=== PATIENT | male | born 1945 | race Caucasian/White ===

== ENCOUNTER 2024-01-21 03:58 | Inpatient (IN) ==
--- OUTSIDE RECORDS SUMMARY | 2024-01-21 04:04 | External Medical Summary | Continuity of Care Document ---
Author Name Unknown Organization [facility] [address] [place] [address] [place] [id number] Care Team Providers Care Teacher Emotionally Impaired Name Role Phone Benoit Castillo Primary Care Physician [phone] Encounter [facility] [id number] Date(s): 11/11/23 - 11/11/23 [facility] [address] [facility] [address], [address], [address] [place] [phone] Encounter Diagnosis History of cirrhosis(Discharge Diagnosis) - 11/11/23 Discharge Disposition: Home or Self Care Attending Physician: MD José Miguel, Pacheco Ruelas Referring Physician: MD Castillo Michael John Allergies, Adverse Reactions, Alerts No Known Allergies Assessment and Plan Extracted from: Title:Office Visit Note Author:MD José Miguel, I an R Date:11/11/23 78-year-old white malestat us postright hepatectomyon 01/11/2022 for hepatocellular carcinoma.He follows with us for further management ofcirrhosis.Fortunately, the patient is doing very well from a liver diseaseperspective without any signs of hepatic encephalopathy, esophageal varices, ascites, or lab abnormalities. Labs now to calculate his current Child Reyes and MELD scores. Will arrange repeat colonoscopy now for retreatment of hisradiation proctitis. This will likely require several sessions of APCbased therapy. Repeat EGD in two years to rule out any varices. Repeat CT to survey for HCC recurrence is already scheduled for 2023. In the interim,he was advised regarding the healthy liver lifestyle: A. Absolute avoidance of alcohol. B. Avoidance of NSAIDs and herbal medications as these can induce an idiosyncratic hepatitis. C. Tylenol in doses less than 2 grams per day is the safest drug for the liver to metabolize. D. Should avoid supplemental iron as this can lead to secondary hemosiderosis. E. Should pursue a low fat, low salt cardiac-prudent diet and regular exercise to maintain his ideal body weight. F. Any new medication should be cleared by our offices to insure no hepatotoxicity. Once again, thank you for allowing us to participate in his care. Ifwe could be of further assistance, please feel free to contact José Miguel'judy @ [phone] . Immunizations Given and Recorded Vaccine Date Status Refusal Reason SARS-CoV-2 (COVID-19) mRNA-vacc - [id number] 02/26/23 Recorded hepatitis B adult vaccine 05/23/22 Recorded hepatitis B adult vaccine 04/23/22 Recorded SARS-CoV-2 mRNA (Pfizer 12+) bivalent 02/19/22 Rec orded SARS-CoV-2 mRNA ([id number]) 09/13/21 Re corded SARS-CoV-2 (COVID-19) mRNA BNT-162b2 vax 03/23/21 Recorded SARS-CoV-2 (COVID-19) mRNA BNT-162b2 vax 07/08/20 Recorded SARS-CoV-2 (COVID-19) mRNA BNT-162b2 vax 06/17/20 Recorded pneumococcal 13-valent vaccine 02/20/16 Recorded pneumococcal 13-valent vaccine 03/31/14 Recorded zoster vaccine live 04/09/14 Recorded Medications acetaminophen 500 mg oral tablet Start: 08/20/23 12:35:00 PM EDT, 1 tab, PO, q6h, PRN: as needed for pain Start Date: 08/20/23 Status: Ordered cefpodoxime 200 mg oral tablet Start: 08/23/23 8:54:00 AM EDT, 1 tab, PO, q12h, Disp# 4 tab, start 08/23, Pharmacy: [facility] #[id number] Start Date: 08/23/23 Stop Date: 08/25/23 Status: Ordered Centrum Silver Men's oral tablet Start: 08/20/23 12:35:00 PM EDT, 1 tab, PO, Daily, Note to Pharmacy: Centrum Silver for men 50+ Start Date: 08/20/23 Status: Ordered Citracal Maximum + D Start: 06/05/22 12:10:00 PM EST, 2 tab, PO, bid Start Date: 06/05/22 Status: Ordered Flagyl 500 mg oral tablet Start: 08/23/23 8:53:00 AM EDT, 1 tab, PO, q8h, Disp# 6 tab, Start 08/23, Pharmacy: [id number] Start Date: 08/23/23 Stop Date: 08/25/23 Status: Ordered Flomax 0.4 mg oral capsule Start: 10/11/21 2:16:00 PM EDT, 1 cap, PO, qPM Start Date: 10/11/21 Status: Ordered hydroCHLOROthiazide-triamterene 25 mg-37.5 mg oral capsule Start: 04/09/22 1:47:00 PM EST, 1 cap, PO, Daily Start Date: 04/09/22 Status: Ordered Lasix 40 mg oral tablet Start: 08/23/23 9:01:00 AM EDT, 1 tab, PO, Daily, Disp# 30 tab, NEEDED: For noted daily weight gain 2-3lbs above 205lbs, please take 1 tab (40mg)., PRN: see order comments, Pharmacy: [facility] #[id number] Start Date: 08/23/23 Status: Ordered Metamucil Start: 08/03/22 1:01:00 PM EDT, 5.8 g =, PO, Daily, with at least 8 ounces of water Start Date: 08/03/22 Status: Ordered Senna S Start: 08/23/23 8:52:00 AM EDT, 2 tab, PO, bid, Over the counter Start Date: 08/23/23 Status: Ordered Suprep Bowel Prep Kit oral liquid Start: 11/11/23 10:02:00 AM EDT, See Instructions, Disp# 354 mL, Take as directed., [id number] Start Date: 11/11/23 Status: Ordered Mental Status 11/11/23 Barriers to Learning one year None evide nt Mandatory Health Literacy Documentation Yes Communication Barrier Present No Health Literacy Communication Barriers N ever Primary Language Congolese Problem List Condition Confirmation Course Effective Dates Status Health St atus Informant BPH with elevated PSA Confirmed Active Gall stones Confirmed Active History of prostate cancer Confirmed Active History of radiation therapy Confirmed Active Liver cancer Confirmed Active Prostate cancer Confirmed Active Primary cancer of lumbar vertebral column Confirmed Active Urinary leakage Confirmed Active Diagnosis Diagnosis Type Effective Dates Health Status Cl inical Service Informant History of cirrhosis Discharge Diagnosis 11/11/23 Non-Specified Procedures Procedure Date Related Diagnosis Body Site Status Incisional hernia 1 02/08/23 Compl eted Endoscopy 06/05/22 Completed open R hepatectomy and cholecystectomy 01/11/22 Completed Biopsy liver 2021 Completed Cataract surgery 2010 Complete d History of vasectomy 1981 Comp leted Robotic assisted ventral hernia repair (iPUM +) with Ventralight ST mesh by Dr. Larose Vital Signs Most recent to oldest [Reference Range]: 1 Patient Weight 91.4 kg (11/11/23 9:28 AM) Temperature [36.5-37.9 DegC] 36 DegC *LOW* (11/11/23 9:28 AM) Heart Rate 63 bpm (11/11/23 9:28 AM) Respiratory Rate 14 br/min (11/11/23 9:28 AM) Blood Pressure 144/72mmHg (11/11/23 9:28 AM) Cuff Pulse Pressure 72 mmHg (11/11/23 9:28 AM) BP Location # 1 Right Arm (11/11/23 9:28 AM) Social History Social History Type Response Smoking Status Never smoked cigaret bakari Sex Male Implantable Device List Procedure Provider Procedure Date Device Type Site Unknown Unknown 02/08/23 Unknown Unknown Device Identifier Serial Number Lot or Batch Number Manufacturing Date Expiration Date Distinct Identification Code MRI Safety Implantable Status Assigning Authority Unknown Unknown [id number] Unknown 07/10/24 Unknown Unknown Active Unknown Gastroenterology Outpatient Note * MD José Miguel, Pacheco R: PERFORM Event Display: Gastroenterology Outpt Note Authored Date: [id number] Chief Complaint yearly check up History of Present Illness 78year-old white malestatus postright hepatectomyon 01/11/2022 for hepatocellular carcinoma.He follows in the[facility]atologyclinicafter intraoperativepathology revealedincomplete cirrhosis. He has no history of hepatic encephalopathy. Most recent CT dated September 11, 2023 showed neither ascites nor any focal liver lesions. EGD dated 2022: - Normal upper third of esophagus and middle third of esophagus. - LA Grade A reflux esophagitis with no bleeding. - Normal stomach.- Normal examined duodenum. His past medical history is notable for prostate cancer treated with radiation therapy. Indeed, he was recently treated for radiation proctitis in August 2023. Since that time, he still notes intermittent passage of bright red blood per rectum. Although no past medical history of HTN, HLD, or Diabetes, he does havetworisk factors for steatotic liver disease:overweightand obstructive sleep apnea. He does not consume alcohol. He has no history of tattoos. 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 Review of Systems 1. General: Denies fevers, chills. 2. Head: Denies headaches. 3. Eyes: Denies blurry vision. 4. Ears: Denies tinnitus. 5. Nose/throat: Denies rhinorrhea. 6. Respiratory: Denies shortness of breath. 7. Cardiovascular: Denies chest pain. 8. GI: As above. 9. : Denies hematuria. 10. Psychiatric: Appropriately anxious regarding his condition. Physical Exam Vitals & Measurements T:36C HR:63(Monitored) RR:14 BP:144/72 WT:91.4kg WT:91.400kg(Dosing) Eyes: No icterus Neck: No JVD; No lymphadenopathy Chest: CTA Cor: RRR Abdomen: Benign; no HSM Extr: No c/c/e Neurologic: No asterixis Skin:No jaundice Assessment/Plan 78-year-old white malestatus postright hepatectomyon 01/11/2022 for hepatocellular carcinoma.He follows with us for further management ofcirrhosis.Fortunately, the patient is doing very well from a liver diseaseperspective without any signs of hepatic encephalopathy, esophageal varices,ascites, or lab abnormalities. Labs now to calculate his current Child Reyes and MELD scores. Will arrange repeat colonoscopy now for retreatment of hisradiation proctitis. This will likelyrequire several sessions of APCbased therapy. Repeat EGD in two years to rule out any varices. Repeat CT to survey for HCC recurrence is already scheduled for 2023. In the interim,he was advised regarding the healthy liver lifestyle: A. Absolute avoidance of alcohol. B. Avoidance of NSAIDs and herbal medications as these can induce an idiosyncratic hepatitis. C. Tylenol in doses less than 2 grams per day is the safest drug for the liver to metabolize. D. Should avoid supplemental iron as this can lead to secondary hemosiderosis. E. Should pursue a low fat, low salt cardiac-prudent diet and regular exercise to maintain his ideal body weight. F. Any new medication should be cleared by our offices to insure no hepatotoxicity. Once again, thank you for allowing us to participate in his care. Ifwe could be of further assistance, please feel free to contactDr. Valdez'judy @ [phone]. Problem List/Past Medical History Ongoing BPH with elevated PSA Gall stones History of radiation therapy Primary cancer of lumbar vertebral column Prostate cancer Urinary leakage Procedure/Surgical History Incisional hernia| Service Date: 02/08/2023open R hepatectomy and cholecystectomy| Service Date: 01/11/2022ataract surgery| Service Date: 2010History of vasectomy| Service Date: 1980 Medications acetaminophen(acetaminophen 500 mg oral tablet), 500 mg= 1 tab, PO, q6h, PRN calcium-vitamin D(Citracal Maximum + D), 2 tab, PO, bid cefpodoxime(cefpodoxime 200 mg oral tablet), 200 mg= 1 tab, PO, q12h docusate-senna(Senna S), 2 tab, PO, bid furosemide(Lasix 40 mg oral tablet), 40 mg= 1 tab, PO, Daily, PRN hydroCHLOROthiazide-triamterene(hydroCHLOROthiazide-triamterene 25 mg-37.5 mg oral capsule), 1 cap,PO, Daily metroNIDAZOLE(Flagyl 500 mg oral tablet), 500 mg= 1 tab, PO, q8h multivitamin with minerals(Centrum Silver Men's oral tablet), 1 tab, PO, Daily psyllium(Metamucil), 5.8 g, PO, Daily tamSULOsin(Flomax 0.4 mg oral capsule), 0.4 mg= 1 cap, PO, qPM Allergies NKA No Known Medication Allergies Social History Smoking Status Never smoked cigarettes Family History Cancer: Mother. Stroke: Father. 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 Division of Gastroenterology & Hepatology [facility] [address], [place] [address], [place] [address] IRS Patient Care team information Care Team Personnel Name: Javi Collins Amy E Position: Pharmacist Member Role: Pharmacy - Lifetime Address: Address: [address] Name: MD Jonathan, Benoit Gil Position: Referring DIRECT Member Role: Primary Care Provider Address: Address: [address] [place] [address] Care Team Related Persons Name: LILIA WATTS Address: [place] Address: home [address] [place] [id number] Name: SINTIA WATTS Address: home [address], [place] [id number]"
--- NOTE | 2024-01-21 04:55 | Emergency Department Note ---
Impression & Plan Gross hematuria, Rectal bleed, Thrombocytopenia admit to the [facility] ED Provider Note NAME: DONOVAN WATTS AGE: 78 SEX: Male INFORMANT: Patient ED PROVIDER(S): Vida Figueroa DO CHIEF COMPLAINT: Hematuria and GI bleeding PLAN: Disposition: admit to the [facility] MEDICAL DECISION MAKING: this is an 78-year-old male patient presents to the emergency department with hematuria and GI bleeding. The patient awoke from sleep having to have a bowel movement. He describes having a large bowel movement but at the end noted there was approximately 1 teaspoon of blood from his rectum. He then felt the urge to urinate and states that he passed a moderate amount of blood from his penis with very little urine. He then felt like he had the persistent urge to urinate but was unable to. He presented here with recurrent episodes of gross hematuria. Patient denies having episodes of this previously and does not take any anticoagulation. laboratory studies reveal no leukocytosis. Hemoglobin was 11.5 and hematocrit was 31.8. Platelet count is down to 93. Glucose was 125. Patient was hemodynamically stable. Rectal exam revealed brown stool which was Hemoccult positive. Patient urinated iram blood. Nursing staff placed a three-way Diaz catheter for irrigation. After significant amount of irrigation was performed, the patient continued to pass significant bright red blood. Patient has a history of prostate cancer status post radiation. He had undergone colonoscopy back in August of this year and was scheduled to have a repeat colonoscopy performed on this Saturday. I discussed the case with the [facility] Hospitalist and they will evaluate for further inpatient care and consult with urology. Triage Nursing notes: reviewed and agree With them. Vital Signs: reviewed and unremarkable Chronic Medical/Social Conditions affecting care: history of prostate cancer status post radiation. Patient underwent colonoscopy in August Differential Diagnosis: UTI, hemorrhagic cystitis, anemia, Hemorrhoids, Fistula-patient presents with both GI and bleeding. Diagnostics, independently interpreted by me: ECG: normal sinus rhythm at a rate of 72 with PVCs. There is no ST segment elevation or signs of ischemia. There is no ectopy. Cardiac Monitoring: Normal sinus rhythm at 74 HPI: 78 year old Male arrives for evaluation of Rectal bleeding and gross hematuria. patient awoke from sleep having the urge to have a bowel movement. At the end of that bowel movement, he had a small amount of blood from his rectum. patient then attempted to urinate but passed only bright red blood from his penis. PAST MEDICAL HISTORY: See Below, PAST SURGICAL HISTORY: See Below, SOCIAL HISTORY: See Below, HOME MEDICATIONS: See list ALLERGIES: none VITALS: See Below PHYSICAL EXAMINATION: HEENT: Head - normocephalic and atraumatic. Pupils are equal, round, and reactive to light. Extraocular eye muscles are intact, and sclera are anicteric. Nose - moist nasal mucosa without discharge. Mouth - moist buccal mucosa. Oropharynx is nonerythematous and there is no tonsillar exudate or edema noted. Neck: Supple; no cervical lymphadenopathy appreciated Heart: Regular rate and rhythm. There is a normal S1 and S2 with no murmurs, clicks, or gallops appreciated. Lungs: Clear to auscultation bilaterally with no wheezes, rales, or rhonchi. Abdomen: Soft, completely nontender, nondistended, with good bowel sounds. There are no palpable pulsatile masses or hepatosplenomegaly. There is no guarding, rigidity, or rebound noted. Extremities: No evidence of cyanosis, clubbing, or edema. There are easily palpable peripheral pulses. Skin: [place],warm and dry with good turgor and no rashes. rectal: Brown stool which was Hemoccult test positive emergency department course: The patient was evaluated in room A-11. A complete history and physical was performed. An IV lock was initiated and labs were drawn as above. I did perform a rectal exam with the patient. An order was placed for continuous cardiac monitoring. The patient was in a normal sinus rhythm at a rate of 74. A three-way Diaz catheter was placed by nursing staff and irrigation was started. Initially the urine seemed to clear up somewhat but then it returned to bright red blood. I discussed the case with the [facility] Hospitalist and they will evaluate for further inpatient care. Past Med/Surg History Problem List (Updated 01/21/24 @ 06:48 by Vida Figueroa DO) Thrombocytopenia (Acute) Rectal bleed (Acute) Gross hematuria (Acute) Rectal bleeding Gross hematuria Left hydrocele Urinary frequency Scrotal swelling Heart murmur Dysuria Proctocolitis Radiation proctitis Abnormal serum protein electrophoresis Pancytopenia Contusion of rib on right side Abnormal plasma protein test Carpal tunnel syndrome, bilateral upper limbs Benign essential hypertension Prostate cancer (Chronic 03/21/21) Urinary leakage Primary cancer of lumbar vertebral column Liver cancer History of radiation therapy History of prostate cancer Gall stones BPH with elevated PSA HCC (hepatocellular carcinoma) (01/11/22) Cholelithiases Atypical nevus Hepatic lesion 4.[address] referred to GI 04/2021 Prostate cancer (Chronic 03/21/21) Medical History Hepatic lesion Lower urinary tract symptoms (LUTS) Elevated PSA Screening for diabetes mellitus Screening, lipid Lumbar disc disease Prostate nodule Shoulder pain, left BPH loc w urin obs/LUTS Laceration of index finger with tendon involvement Hearing loss Surgical History Hx of colonoscopy H/O resection of liver HCC 01/2022 History of cataract surgery Vasectomy status Family History Mother Cancer of sarcoma leg at age 71 Father BPH (benign prostatic hyperplasia) Lumbar disc disease Stroke Sister COPD (chronic obstructive pulmonary disease) Hypothyroidism Hypertension Other Cystic kidney disease Diabetes Denies family history of Ovarian cancer Prostate cancer Cerebral aneurysm Myocardial infarction Breast cancer Lung cancer Colorectal cancer Pulmonary embolism Colonic polyp Social History Smoking Status: Former smoker Tobacco Type: Pipe Age Started Using Tobacco: 26; Age Quit Using Tobacco: 27; Second Hand Exposure: No; Do You Dip or Chew Tobacco: No; Hx Alcohol Use: Yes Alcohol type: beer and wine Alcohol type Comment: 1 every 5 weeks Alcohol Intake Frequency: Monthly or Less Hx Substance Use: No Preferred Language: Marshallese Communication Ability: Effective Visual Impairment: No Limitations Hearing Ability: Hard of Hearing Beliefs That Will Affect Care: Mandaeism marital status: Current Living Situation: Spouse current occupational status: retired How many Children do You have: 3 Feels Safe at Home: Yes Childhood Exposure to Second-Hand Smoke: No Diet: regular caffeine: Yes during the past year weight has: remained stable Dental Care, Regularly: No Physical Activity Frequency: 5-6 Times per Week Seatbelt Use: always Sunscreen Use: Yes Do you think of yourself as: straight/heterosexual Gender Identity: Male Assistive Devices: Denture - Upper and Denture - Lower Allergies Allergies Allergy/AdvReac Type Severity Reaction Status Date / Time No Known Allergies Allergy Verified 09/23/23 15:07 Home Meds Home Medications Medication Instructions Recorded Confirmed psyllium husk 3.4 gram/5.4 gram 1 tbsp PO DAILY 09/04/22 09/23/23 oral powder (Metamucil) acetaminophen 500 mg tablet 500 mg PO Q6H PRN 08/29/23 09/23/23 (Tylenol Extra Strength) furosemide 40 mg tablet 40 mg PO DAILY PRN weight gain 08/29/23 09/23/23 above 205 calcium 325 mg-vit D3 12.5 2 tab PO BID 09/05/23 09/23/23 mcg-zinc 2.75 er-wspoqk-achfztkpw tablet (Citracal-D3 Maximum Plus) evbaljhk-yl-wjhen 300 mcg-K 60 1 tab PO DAILY 09/05/23 09/23/23 mcg-lycop 600 mcg-lutein 300 mcg tablet (Centrum Silver Men) Previous Rx's Medication Instructions Recorded sennosides 8.6 mg capsule (senna) 8.6 mg PO BID PRN constipation #60 08/29/23 caps tamsulosin 0.4 mg capsule 0.4 mg PO DAILY #30 caps 08/29/23 triamterene 37.5 1 cap PO DAILY #30 caps 11/08/23 mg-hydrochlorothiazide 25 mg capsule Results & Data (ED) Vital Signs Vital Signs - 24 hr 01/21/24 04:05 01/21/24 04:19 01/21/24 04:24 Temperature 36.5 C Temperature Source Oral Pulse Rate 77 72 Respiratory Rate 14 Respiratory Effort / Characteristics Non-Labored Respiratory Depth Normal Respiratory Pattern Regular Blood Pressure 141/72 H Blood Pressure Mean 95 Pulse Oximetry 98 96 Oxygen Delivery Method Room Air Room Air Sepsis Recent Fever Within 48 Hours No Sepsis New/Unexplained Change in Mental Status N/A Sepsis Action Taken by Nursing No Action Required 01/21/24 04:33 Temperature Temperature Source Pulse Rate 88 Respiratory Rate 18 Respiratory Effort / Characteristics Respiratory Depth Respiratory Pattern Blood Pressure 159/89 H Blood Pressure Mean 112 Pulse Oximetry Oxygen Delivery Method Sepsis Recent Fever Within 48 Hours Sepsis New/Unexplained Change in Mental Status Sepsis Action Taken by Nursing Laboratory Data 01/21/24 04:09 01/21/24 04:09 Lab Results 01/21/24 01/21/24 Range/Units 04:09 04:15 WBC 3.07 L (4.8-10.8) K/ul RBC 3.42 L (4.70-6.10) M/uL Hgb 11.5 L (14.0-18.0) g/dl Hct 31.8 L (42.0-52.0) % MCV 93.0 (80.0-100.0) fL MCH 33.6 (25.0-34.0) pg MCHC 36.2 H (32.0-36.0) g/dL RDW Std Deviation 45.2 (36.4-46.3) fL RDW Coeff of Jose 13.3 (11.5-14.5) % Plt Count 93 L (130-400) K/uL MPV 10.9 (9.4-12.4) fL Immature Gran % (Auto) 0.3 % Neut % (Auto) 40.7 % Lymph % (Auto) 33.9 % [place] % (Auto) 19.9 % Eos % (Auto) 3.9 % Baso % (Auto) 1.3 % Neut # (Auto) 1.25 L (1.40-6.50) K/uL Lymph # (Auto) 1.04 L (1.20-3.40) K/uL [place] # (Auto) 0.61 H (0.11-0.59) K/uL Eos # (Auto) 0.12 (0.00-0.50) K/uL Baso # (Auto) 0.04 (0.00-0.20) K/uL Immature Gran # (Auto) 0.01 (0.01-0.20) K/uL Platelet Estimate Decreased L (Normal) RBC Morphology Unremarkable PT 12.4 H (9.0-12.0) Seconds INR 1.2 H (0.9-1.1) APTT 26 (21-31) Seconds PTT Ratio 1.0 Sodium 135 L (136-145) mmol/L Potassium 3.7 (3.5-5.1) mmol/L Chloride 106 (98-107) mmol/L Carbon Dioxide 25 (21-32) mmol/L Anion Gap 4 (3-11) BUN 13 (6-23) mg/dl Creatinine 0.75 (0.6-1.4) mg/dl Est Cr Clr Drug Dosing 91.5 ml/min Est GFR ( Amer) 100.4 ml/min Est GFR (Non-Af Amer) 86.6 ml/min BUN/Creatinine Ratio 17.3 (10-20) Glucose 125 H (70-99(Fasting)) mg/dl Calcium 8.7 (8.6-10.3) mg/dl Total Bilirubin 1.5 H (0.2-1.0) mg/dl AST 68 H (13-39) U/L ALT 43 (7-52) U/L Alkaline Phosphatase 81 (34-104) U/L Total Protein 6.1 (6.0-8.3) gm/dl Albumin 3.3 L (3.4-5.0) gm/dl Globulin 2.8 (2.5-4.0) gm/dl Albumin/Globulin Ratio 1.2 (0.9-2) Urine Color Red Urine Appearance Turbid A (Clear) Urine pH 7.0 (4.5-7.5) Ur Specific Krebs 1.025 (1.000-1.030) Urine Protein 3+ H (Negative) Urine Glucose (UA) Trace H (Negative) Urine Ketones Negative (Negative) Urine Blood 3+ H (Negative) Urine Nitrite Negative (Negative) Urine Bilirubin Negative (Negative) Urine Urobilinogen Negative (Negative) Ur Leukocyte Esterase Negative (Negative) Urine RBC >20 H (0-2) /hpf Urine WBC 11-20 H (0-5) /hpf Ur Epithelial Cells 3-5 H (0-2) /hpf Urine Bacteria None Seen (None Seen) Administered Medications Discontinued Medications Lidocaine HCl (Lidocaine 2% Jelly 5 Ml Tube) Confirm Administered Dose 5 ml EXT .STK-MED ONE Stop: 01/21/24 04:45 Last Admin: 01/21/24 05:53 Dose: 5 ml Documented By: TIKI Discharge Plan Visit Data Chief Complaint: Hematuria Stated Complaint: BLEEDING ED Provider: Vida Figueroa Discharge Problem: Gross hematuria, Rectal bleed, Thrombocytopenia Forms Stand Alone Forms: [facility] Prescriptions Prescriptions: No Action Metamucil 3.4 gram/5.4 gram powder 1 tbsp PO DAILY Rx Instructions: mix into at least 8 oz of water or juice before administering Centrum Silver Men [id number] mcg tablet 1 tab PO DAILY [id number]-icbv-copper-danielle [Citracal-D3 Maximum Plus] 325 mg-12.5 mcg -2.75 mg tablet 2 tab PO BID triamterene-hydrochlorothiazid 37.5-25 mg capsule 1 cap PO DAILY Qty: 30 2RF furosemide 40 mg tablet 40 mg PO DAILY PRN (Reason: weight gain above 205) acetaminophen [Tylenol Extra Strength] 500 mg tablet 500 mg PO Q6H PRN senna 8.6 mg capsule 8.6 mg PO BID PRN (Reason: constipation) Qty: 60 0RF tamsulosin 0.4 mg capsule 0.4 mg PO DAILY Qty: 30 5RF Rx Instructions: Take with food after supper. Referrals Referrals: Benoit Castillo MD [Primary Care Provider] -
[2024-01-21 05:01] LABS: Appearance Urine Turbid (Clear); Bilirubin Urine Negative (Negative); Blood Urine 3+ (Negative); Color Urine Red; Glucose Urine UA Trace (Negative); Ketones Urine Negative (Negative); Leukocyte Esterase Urine Negative (Negative); Nitrite Urine Negative (Negative); Protein Urine 3+ (Negative); Specific Gravity Urine 1.025 (1.000-1.030); Urobilinogen Urine Negative (Negative)
[2024-01-21 05:06] LABS: Bacteria Urine None Seen (None Seen); RBC Urine >20 /hpf (0-2)
[2024-01-21 05:10] LABS: Albumin Globulin Ratio 1.2 (0.9-2); Albumin Level 3.3 gm/dl (3.4-5.0); BUN Creatinine Ratio 17.3 (10-20); Bilirubin,Total 1.5 mg/dl (0.2-1.0); Calcium 8.7 mg/dl (8.6-10.3); Creatinine Clr Calc Pharmacy 91.5 ml/min; Est GFR (African American) 100.4 ml/min; Est GFR (Non-African American) 86.6 ml/min; Globulin 2.8 gm/dl (2.5-4.0); Potassium 3.7 mmol/L (3.5-5.1); Total Protein 6.1 gm/dl (6.0-8.3)
[2024-01-21 05:18] LABS: INR 1.2 (0.9-1.1); Partial Thromboplastin Time 26 Seconds (21-31); Prothrombin Time 12.4 Seconds (9.0-12.0)
[2024-01-21 05:21] LABS: Hematocrit (blood only) 31.8 % (42.0-52.0); Hemoglobin 11.5 g/dl (14.0-18.0); Mean Corpuscular Hemoglobin 33.6 pg (25.0-34.0); Mean Corpuscular Hgb Conc 36.2 g/dL (32.0-36.0); Mean Platelet Volume 10.9 fL (9.4-12.4); Platelet Count 93 K/uL (130-400); RDW Coefficient of Variation 13.3 % (11.5-14.5); RDW Standard Deviation 45.2 fL (36.4-46.3); Red Blood Count 3.42 M/uL (4.70-6.10); White Blood Count 3.07 K/ul (4.8-10.8)
[2024-01-21 05:22] LABS: Basophils # (auto) 0.04 K/uL (0.00-0.20); Basophils % (auto) 1.3 %; Eosinophils # (auto) 0.12 K/uL (0.00-0.50); Eosinophils % (auto) 3.9 %; Immature Granulocytes # (auto) 0.01 K/uL (0.01-0.20); Immature Granulocytes % (auto) 0.3 %; Lymphocytes # (auto) 1.04 K/uL (1.20-3.40); Lymphocytes % (auto) 33.9 %; Monocytes # (auto) 0.61 K/uL (0.11-0.59); Monocytes % (auto) 19.9 %; Neutrophils # (auto) 1.25 K/uL (1.40-6.50); Neutrophils % (auto) 40.7 %; Platelet Estimate Decreased (Normal); RBC Morphology Unremarkable
[2024-01-21] MEDS: LIDOCAINE 2% JELLY 5 ML TUBE EXT ONE (05:53)
[2024-01-21] MEDS ORDERED: ONDANSETRON INJ 2 MG/ML 2 ML VIAL IV PRN ×2 (06:21→09:28)
[2024-01-21] MEDS ORDERED: MoRPHine SULFATE 4 MG/ML 1 ML CARP\\VIAL IV PRN (06:21)
[2024-01-21] MEDS ORDERED: MoRPHine SULFATE 2 MG/ML CARP IV PRN (06:21)
--- NOTE | 2024-01-21 06:21 | Urology Consultation ---
Date of Consultation January 21, 2024 Assessment & Plan (1) Radiation proctitis: The patient has been admitted on the hospitalist service: Concerning patient's potential GI bleed this will be managed as directed by the primary service Concerning the patient's hematuria: Would maintain continuous bladder irrigation for the present time and this can be weaned as the patient's hematuria clears Manual flushing and irrigation may be employed if the Diaz catheter becomes clogged Serial labs should be followed Additional recommendations be forthcoming based on his clinical course as it unfolds History of Present Illness Reason for Consultation: Hematuria History of Present Illness This is an 78-year-old male who presented to the emergency department secondary to hematuria as well as GI bleeding. The patient says he woke from sleep and when he had a bowel movement shortly after waking up he noted a small amount of blood in his rectum. The patient says that he then had the urge to urinate and he passed a small amount of blood from his penis with a very weak urine stream and he felt as though he had to continue to to urinate but was unable to do so so he presented to the emergency department. The patient does have an underlying history of prostate cancer for which he had had radiation treatment he follows at [facility] and also locally with Dr. Schultz. Patient notes that he does have a history of radiation proctitis. As noted above the patient says that after he had some hematuria he then had the inability to urinate prompting his visit to the emergency department. Of note, the patient denies taking any anticoagulants. Since arrival to the hospital patient has had labs which independent reviewed. CBC revealed white blood cell count of 3.0. Hemoglobin and hematocrit 11.5 and 31.8. Platelet count was 93,000. Coagulation studies revealed INR 1.2. Chemistry profile showed sodium is 135 with a normal potassium. BUN and cre atinine were normal as well. Urinalysis showed 11-20 white blood cells per high-power field but the specimen was negative for nitrites, leukocyte esterase, or bacteria. Since arrival to the emergency department the patient has had a Diaz catheter inserted and continuous bladder irrigation has been initiated. Patient notes some symptomatic relief with this modality and he was in no distress at the time of my interview. Allergies Allergy/AdvReac Type Severity Reaction Status Date / Time No Known Allergies Allergy Verified 09/23/23 15:07 Home Medications Medication Instructions Recorded Confirmed Type psyllium husk 3.4 gram/5.4 gram 1 tbsp PO DAILY 09/04/22 09/23/23 History oral powder (Metamucil) acetaminophen 500 mg tablet 500 mg PO Q6H PRN 08/29/23 09/23/23 History (Tylenol Extra Strength) furosemide 40 mg tablet 40 mg PO DAILY PRN weight gain 08/29/23 09/23/23 History above 205 sennosides 8.6 mg capsule (senna) 8.6 mg PO BID PRN constipation #60 08/29/23 09/23/23 Rx caps tamsulosin 0.4 mg capsule 0.4 mg PO DAILY #30 caps 08/29/23 09/23/23 Rx calcium 325 mg-vit D3 12.5 2 tab PO BID 09/05/23 09/23/23 History mcg-zinc 2.75 hw-fummtv-bmngxnfqn tablet (Citracal-D3 Maximum Plus) pfqnnckh-yk-ihcwf 300 mcg-K 60 1 tab PO DAILY 09/05/23 09/23/23 History mcg-lycop 600 mcg-lutein 300 mcg tablet (Centrum Silver Men) triamterene 37.5 1 cap PO DAILY #30 caps 11/08/23 Rx mg-hydrochlorothiazide 25 mg capsule Patient History Medical History Hepatic lesion Lower urinary tract symptoms (LUTS) Elevated PSA Screening for diabetes mellitus Screening, lipid Lumbar disc disease Prostate nodule Shoulder pain, left BPH loc w urin obs/LUTS Laceration of index finger with tendon involvement Hearing loss Surgical History Hx of colonoscopy H/O resection of liver HCC 01/2022 History of cataract surgery Vasectomy status Family History Mother Cancer of sarcoma leg at age 71 Father BPH (benign prostatic hyperplasia) Lumbar disc disease Stroke Sister COPD (chronic obstructive pulmonary disease) Hypothyroidism Hypertension Other Cystic kidney disease Diabetes Denies family history of Ovarian cancer Prostate cancer Cerebral aneurysm Myocardial infarction Breast cancer Lung cancer Colorectal cancer Pulmonary embolism Colonic polyp Social History Smoking Status: Former smoker Tobacco Type: Pipe Age Started Using Tobacco: 26; Age Quit Using Tobacco: 27; Second Hand Exposure: No; Do You Dip or Chew Tobacco: No; Hx Alcohol Use: Yes Alcohol type: beer and wine Alcohol type Comment: 1 every 5 weeks Alcohol Intake Frequency: Monthly or Less Hx Substance Use: No Preferred Language: Ethiopian Communication Ability: Effective Visual Impairment: No Limitations Hearing Ability: Hard of Hearing Beliefs That Will Affect Care: Rastafarian marital status: Current Living Situation: Spouse current occupational status: retired How many Children do You have: 3 Feels Safe at Home: Yes Childhood Exposure to Second-Hand Smoke: No Diet: regular caffeine: Yes during the past year weight has: remained stable Dental Care, Regularly: No Physical Activity Frequency: 5-6 Times per Week Seatbelt Use: always Sunscreen Use: Yes Do you think of yourself as: straight/heterosexual Gender Identity: Male Assistive Devices: Denture - Upper and Denture - Lower Review of Systems Review of Systems: All systems reviewed & are unremarkable except as noted in HPI & below Physical Exam Constitutional: WD/WN, vitals as above Eyes: no conjunctival abnormality ENMT: Ears: no hearing impairment and no external ear abnormality Mouth: no oropharynx abnormality Neck: trachea midline Respiratory: normal respiratory effort; no respiratory distress and no labored breathing Cardiovascular: Rate/Rhythm: regular rate and regular rhythm Gastrointestinal (Abdomen): At the time my exam abdomen was soft and nontender. He did not have any suprapubic discomfort with palpation Musculoskeletal: No calf tenderness Skin: no rashes Neurologic: moves all extremities Psychiatric: A+Ox3, euthymic affect Genitourinary: Patient has a Diaz catheter in place connected to continuous bladder irrigation. Just prior to my interview with the patient with nursing staff flushed and irrigated retrieving a blood clot and it is now draining clear urine Results & Data Vital Signs (Past 12 Hours) Vital Signs Temp Pulse Resp BP Pulse Ox O2 Del Method 01/21/24 04:33 88 18 159/89 H 01/21/24 04:24 96 Room Air 01/21/24 04:19 36.5 C 72 14 141/72 H 98 Room Air 01/21/24 04:05 77 PG Care Time/CCT Total # of Minutes Spent Total Time Spent with Patient: Total time spent is greater than 50% in coordination of care (as documented) at patient's floor/unit and/or counseling patient: Coding Level of Care Code 39422 INT INP/OBS CARE MIN Diagnoses Radiation proctitis K62.7
--- NOTE | 2024-01-21 06:24 | History & Physical Report ---
Date of Service January 21, 2024 Assessment & Plan (1) Gross hematuria: (2) Rectal bleeding: (3) Radiation proctitis: (4) Proctocolitis: (5) Prostate cancer: (6) History of radiation therapy: (7) HCC (hepatocellular carcinoma): Plan Gross hematuria/history of prostate cancer/history radiation- Continue CBI begun in the ED, with likelihood of periodic clots causing obstruction Follow urine culture and sensitivity Empiric ceftriaxone 2 g IV daily Urology has been consulted and has seen the patient in the ED Increase tamsulosin from 0.4 to 0.8 mg GI bleeding/history of radiation proctitis/history of proctocolitis- Patient underwent colonoscopy August this year at [facility], and had some form of cautery performed Colonoscopy is scheduled for 01/23 at [facility] Ceftriaxone as above, add Flagyl 500 mg IV every 8 hours Consult gastroenterology Type and screen has been ordered H&H every 6 hours Hepatocellular carcinoma- Patient status post right hepatectomy 01/11/2022 Follows with [place] hepatology Hypertension- Hold triamterene/HCTZ Thrombocytopenia- Platelets 108 are near his baseline Follow serially History of Present Illness Chief Complaint: The patient presents to the emergency department after having been awoken overnight with pressure sensation to move his bowels, and ended up passing some bright red blood. He then had pressure to urinate, and primarily passed bright red blood. The patient reports that he had traveled from [place] earlier today, and arrived to [place] at around 2:00 in the afternoon. Primary Care Provider: Benoit Castillo MD The patient is an 78-year-old male with a past medical history including radiation proctitis, proctocolitis, pancytopenia, bilateral carpal tunnel syndrome, hypertension, prostate cancer, hepatocellular carcinoma status post right hepatectomy 01/11/2022, s/p radiation therapy, grade a reflux esophagitis on EGD 06/01/2022, left varicocele and small hydrocele. He presents to the emergency department with initially rectal bleeding, followed by persistent gross hematuria. He did have a three-way Diaz catheter placed in ED, and CBI was begun. He did have some blockage temporarily with blood clots, which were able to be evacuated and CBI is now running smoothly. He was having some occasional bladder spasm pain during my interview, but prior to that had presented with painless rectal and urologic bleeding. He did undergo a colonoscopy in August at [facility], where he had some form of cautery performed, and has a colonoscopy scheduled for this Saturday, 01/23. He follows locally with urology Dr. Schultz. Allergies Allergy/AdvReac Type Severity Reaction Status Date / Time No Known Allergies Allergy Verified 09/23/23 15:07 Home Medications Medication Instructions Recorded Confirmed Type psyllium husk 3.4 gram/5.4 gram 1 tbsp PO DAILY 09/04/22 09/23/23 History oral powder (Metamucil) acetaminophen 500 mg tablet 500 mg PO Q6H PRN 08/29/23 09/23/23 History (Tylenol Extra Strength) furosemide 40 mg tablet 40 mg PO DAILY PRN weight gain 08/29/23 09/23/23 History above 205 sennosides 8.6 mg capsule (senna) 8.6 mg PO BID PRN constipation #60 08/29/23 09/23/23 Rx caps tamsulosin 0.4 mg capsule 0.4 mg PO DAILY #30 caps 08/29/23 09/23/23 Rx calcium 325 mg-vit D3 12.5 2 tab PO BID 09/05/23 09/23/23 History mcg-zinc 2.75 dh-hlxopy-coiuirivq tablet (Citracal-D3 Maximum Plus) rvkovtds-ia-evulc 300 mcg-K 60 1 tab PO DAILY 09/05/23 09/23/23 History mcg-lycop 600 mcg-lutein 300 mcg tablet (Centrum Silver Men) triamterene 37.5 1 cap PO DAILY #30 caps 11/08/23 Rx mg-hydrochlorothiazide 25 mg capsule Past Med/Surg History Problem List (Updated 01/21/24 @ 06:40 by Don Kolb MD) Rectal bleeding Gross hematuria Left hydrocele Urinary frequency Scrotal swelling Heart murmur Dysuria Proctocolitis Radiation proctitis Abnormal serum protein electrophoresis Pancytopenia Contusion of rib on right side Abnormal plasma protein test Carpal tunnel syndrome, bilateral upper limbs Benign essential hypertension Prostate cancer (Chronic 03/21/21) Urinary leakage Primary cancer of lumbar vertebral column Liver cancer History of radiation therapy History of prostate cancer Gall stones BPH with elevated PSA HCC (hepatocellular carcinoma) (01/11/22) Cholelithiases Atypical nevus Hepatic lesion 4.[address] referred to GI 04/2021 Prostate cancer (Chronic 03/21/21) Medical History Hepatic lesion Lower urinary tract symptoms (LUTS) Elevated PSA Screening for diabetes mellitus Screening, lipid Lumbar disc disease Prostate nodule Shoulder pain, left BPH loc w urin obs/LUTS Laceration of index finger with tendon involvement Hearing loss Surgical History Hx of colonoscopy H/O resection of liver HCC 01/2022 History of cataract surgery Vasectomy status Family History Mother Cancer of sarcoma leg at age 71 Father BPH (benign prostatic hyperplasia) Lumbar disc disease Stroke Sister COPD (chronic obstructive pulmonary disease) Hypothyroidism Hypertension Other Cystic kidney disease Diabetes Denies family history of Ovarian cancer Prostate cancer Cerebral aneurysm Myocardial infarction Breast cancer Lung cancer Colorectal cancer Pulmonary embolism Colonic polyp Social History Smoking Status: Former smoker Tobacco Type: Pipe Age Started Using Tobacco: 26; Age Quit Using Tobacco: 27; Second Hand Exposure: No; Do You Dip or Chew Tobacco: No; Hx Alcohol Use: Yes Alcohol type: beer and wine Alcohol type Comment: 1 every 5 weeks Alcohol Intake Frequency: Monthly or Less Hx Substance Use: No Preferred Language: Japanese Communication Ability: Effective Visual Impairment: No Limitations Hearing Ability: Hard of Hearing Beliefs That Will Affect Care: Pentecostalism marital status: Current Living Situation: Spouse current occupational status: retired How many Children do You have: 3 Feels Safe at Home: Yes Childhood Exposure to Second-Hand Smoke: No Diet: regular caffeine: Yes during the past year weight has: remained stable Dental Care, Regularly: No Physical Activity Frequency: 5-6 Times per Week Seatbelt Use: always Sunscreen Use: Yes Do you think of yourself as: straight/heterosexual Gender Identity: Male Assistive Devices: Denture - Upper and Denture - Lower Review of Systems Review of Systems: The patient denies chest pain, palpitations, shortness of breath, dyspnea on exertion, cough, lower extremity swelling, sore throat, fevers, chills, sweats, weight change, fatigue, nausea, vomiting, diarrhea , constipation, abdominal pain, lightheadedness, dizziness, headache, memory loss, loss of consciousness, rash, imbalance, focal or generalized weakness, numbness or tingling in arms or legs, generalized arthralgias or myalgias, back or neck pain, or night sweats. The review of systems is otherwise negative other than for that already noted above, and at least 10 systems have been reviewed. Physical Exam Physical Exam: The patient is awake, alert and oriented 3, well developed and well nourished, normocephalic and atraumatic, lying in bed and in no acute distress. HEENT--PERRL, EOMI, mucous membranes and oropharynx mildly dry. Neck--supple. No JVD. No bruits. Thyroid normal, trachea midline, no adenopathy. Heart--normal S1 and S2. No murmurs, rubs or gallops. Lungs--clear bilaterally, no respiratory distress, no accessory muscle use. Abdomen--normal bowel sounds and soft. Nontender. Nondistended Extremities--no cyanosis or clubbing. No edema. Dermatologic--normal skin turgor, normal color, no abnormal lymph nodes, no rash. Neurologic--cranial nerves II through XII grossly intact. Rheumatologic--normal range of motion. Psychiatric--normal affect. Results & Data Results & Data Vital Signs (Past 12 Hours) Vital Signs Temp Pulse Resp BP Pulse Ox O2 Del Method 01/21/24 04:33 88 18 159/89 H 01/21/24 04:24 96 Room Air 01/21/24 04:19 36.5 C 72 14 141/72 H 98 Room Air 01/21/24 04:05 77 Laboratory Results Laboratory Results WBC 3.07 K/ul (4.8-10.8) L 01/21/24 04:09 RBC 3.42 M/uL (4.70-6.10) L 01/21/24 04:09 Hgb 11.5 g/dl (14.0-18.0) L 01/21/24 04:09 Hct 31.8 % (42.0-52.0) L 01/21/24 04:09 MCV 93.0 fL (80.0-100.0) 01/21/24 04:09 MCH 33.6 pg (25.0-34.0) 01/21/24 04:09 MCHC 36.2 g/dL (32.0-36.0) H 01/21/24 04:09 RDW Std Deviation 45.2 fL (36.4-46.3) 01/21/24 04:09 RDW Coeff of Jose 13.3 % (11.5-14.5) 01/21/24 04:09 Plt Count 93 K/uL (130-400) L 01/21/24 04:09 MPV 10.9 fL (9.4-12.4) 01/21/24 04:09 Immature Gran % (Auto) 0.3 % 01/21/24 04:09 Neut % (Auto) 40.7 % 01/21/24 04:09 Lymph % (Auto) 33.9 % 01/21/24 04:09 Hardeman % (Auto) 19.9 % 01/21/24 04:09 Eos % (Auto) 3.9 % 01/21/24 04:09 Baso % (Auto) 1.3 % 01/21/24 04:09 Neut # (Auto) 1.25 K/uL (1.40-6.50) L 01/21/24 04:09 Lymph # (Auto) 1.04 K/uL (1.20-3.40) L 01/21/24 04:09 Hardeman # (Auto) 0.61 K/uL (0.11-0.59) H 01/21/24 04:09 Eos # (Auto) 0.12 K/uL (0.00-0.50) 01/21/24 04:09 Baso # (Auto) 0.04 K/uL (0.00-0.20) 01/21/24 04:09 Immature Gran # (Auto) 0.01 K/uL (0.01-0.20) 01/21/24 04:09 Platelet Estimate Decreased (Normal) L 01/21/24 04:09 RBC Morphology Unremarkable 01/21/24 04:09 PT 12.4 Seconds (9.0-12.0) H 01/21/24 04:09 INR 1.2 (0.9-1.1) H 01/21/24 04:09 APTT 26 Seconds (21-31) 01/21/24 04:09 PTT Ratio 1.0 01/21/24 04:09 Sodium 135 mmol/L (136-145) L 01/21/24 04:09 Potassium 3.7 mmol/L (3.5-5.1) 01/21/24 04:09 Chloride 106 mmol/L (98-107) 01/21/24 04:09 Carbon Dioxide 25 mmol/L (21-32) 01/21/24 04:09 Anion Gap 4 (3-11) 01/21/24 04:09 BUN 13 mg/dl (6-23) 01/21/24 04:09 Creatinine 0.75 mg/dl (0.6-1.4) 01/21/24 04:09 Est Cr Clr Drug Dosing 91.5 ml/min 01/21/24 04:09 Est GFR ( Amer) 100.4 ml/min 01/21/24 04:09 Est GFR (Non-Af Amer) 86.6 ml/min 01/21/24 04:09 BUN/Creatinine Ratio 17.3 (10-20) 01/21/24 04:09 Glucose 125 mg/dl (70-99(Fasting)) H 01/21/24 04:09 Calcium 8.7 mg/dl (8.6-10.3) 01/21/24 04:09 Total Bilirubin 1.5 mg/dl (0.2-1.0) H 01/21/24 04:09 AST 68 U/L (13-39) H 01/21/24 04:09 ALT 43 U/L (7-52) 01/21/24 04:09 Alkaline Phosphatase 81 U/L (34-104) 01/21/24 04:09 Total Protein 6.1 gm/dl (6.0-8.3) 01/21/24 04:09 Albumin 3.3 gm/dl (3.4-5.0) L 01/21/24 04:09 Globulin 2.8 gm/dl (2.5-4.0) 01/21/24 04:09 Albumin/Globulin Ratio 1.2 (0.9-2) 01/21/24 04:09 Urine Color Red 01/21/24 04:15 Urine Appearance Turbid (Clear) A 01/21/24 04:15 Urine pH 7.0 (4.5-7.5) 01/21/24 04:15 Ur Specific [place] 1.025 (1.000-1.030) 01/21/24 04:15 Urine Protein 3+ (Negative) H 01/21/24 04:15 Urine Glucose (UA) Trace (Negative) H 01/21/24 04:15 Urine Ketones Negative (Negative) 01/21/24 04:15 Urine Blood 3+ (Negative) H 01/21/24 04:15 Urine Nitrite Negative (Negative) 01/21/24 04:15 Urine Bilirubin Negative (Negative) 01/21/24 04:15 Urine Urobilinogen Negative (Negative) 01/21/24 04:15 Ur Leukocyte Esterase Negative (Negative) 01/21/24 04:15 Urine RBC >20 /hpf (0-2) H 01/21/24 04:15 Urine WBC 11-20 /hpf (0-5) H 01/21/24 04:15 Ur Epithelial Cells 3-5 /hpf (0-2) H 01/21/24 04:15 Urine Bacteria None Seen (None Seen) 01/21/24 04:15 Code Status & VTE Plan Code Status Full code VTE Prophylaxis Plan VTE Prophylaxis will be ordered: Yes PG Care Time/CCT Total # of Minutes Spent Total Time Spent with Patient: Total time spent is greater than 50% in coordination of care (as documented) at patient's floor/unit and/or counseling patient: Coding Level of Care Code 17922 INT INP/OBS CARE 3/75MIN Diagnoses Gross hematuria R31.0 Rectal bleeding K62.5 Radiation proctitis K62.7 Proctocolitis K52.9 Prostate cancer C61 History of radiation therapy Z92.3 HCC (hepatocellular carcinoma) C22.0
[2024-01-21] MEDS: NSS + 20MEQ KCL 20 MEQ/1,000 ML BAG IV SCH (06:47)
[2024-01-21] MEDS: PANTOprazole 40 MG in SYRINGE 0 ML IV ONE (06:47)
--- NOTE | 2024-01-21 07:13 | Hospitalist Progress Note ---
Date of Service January 21, 2024 Assessment & Plan (1) Rectal bleed: (2) Gross hematuria: (3) Rectal bleeding: (4) Gross hematuria: (5) Benign essential hypertension: Plan Gross hematuria/history of prostate cancer/history radiation- - Continue CBI begun in the ED, with likelihood of periodic clots causing obstruction - Follow urine culture and sensitivity - Empiric ceftriaxone 2 g IV daily - Urology has been consulted; continue irrigation as needed, tamsulosin increased from 0.4 to 0.8 mg - hgb today 11.8 GI bleeding/history of radiation proctitis/history of proctocolitis- - Patient underwent colonoscopy August this year at [facility], and had some form of cautery performed - Colonoscopy is scheduled for 01/23 at [place] - Ceftriaxone as above, add Flagyl 500 mg IV every 8 hours - Consult gastroenterology; keep saturday colonoscopy appt, discussed enemas with him today Hepatocellular carcinoma- - Patient status post right hepatectomy 01/11/2022 - Follows with [place] hepatology Hypertension- - Hold triamterene/HCTZ Thrombocytopenia- - Platelets 108 are near his baseline - Follow serially Supervising Physician Co-Signing Physician Notes seen in f/u from early AM admission - sleeping comfortably. d/w resident physician, appreciate instructional consultant input hematuria - likely radiation cystitis, treating empirically for infection. appreciate urology assistance, continue CBI, follow urine/BMP hematochezia - appears to have known radiation proctitis - for scope saturday hemodynamically stable otherwise as above Subjective Today, pt states he is feeling much better after coelho placement with irrigation. He states last night before bed he had felt fine, but overnight he had a bloody bowel movement and had peed urine that was frankly quite bloody before not being able to urinate anymore and getting cramps. So far today feeling great. No chest pain or SOB. No nausea or vomiting. He states he was suppose to have a colonoscopy on saturday. Review of Systems Review of Systems: Per HPI. Physical Exam Physical Exam: General:Alert and oriented, no acute distress, HEENT: Normocephalic, moist oral mucosa, Cardio: Regular rate and rhythm, Resp:Lungs clear to auscultation b/l, no wheezes or rhonchi, GI: Soft with some mild lower abdominal tenderness to palpation, nondistended, bowel sounds active Skin: Warm, pink, dry, Results & Data Results & Data Vital Signs (Past 12 Hours) Vital Signs Temp Pulse Pulse Resp BP BP Pulse Ox 01/21/24 06:30 78 18 102/65 98 01/21/24 04:33 88 18 159/89 H 01/21/24 04:24 96 01/21/24 04:19 36.5 C 72 14 141/72 H 98 01/21/24 04:05 77 O2 Del Method 01/21/24 06:30 Room Air 01/21/24 04:33 01/21/24 04:24 Room Air 01/21/24 04:19 Room Air 01/21/24 04:05 Resident Activity Tracking Resident Involvement: Resident Care Provided Care Provided: Adult Hospital Medicine
[2024-01-21] MEDS ORDERED: metroNIDAZOLE 500 MG/100 ML BAG IV STA (07:19)
[2024-01-21] MEDS: cefTRIAXone SODIUM 2,000 MG/50 ML BAG IV STA (08:27)
[2024-01-21 08:36] LABS: Hematocrit (blood only) 32.6 % (42.0-52.0); Hemoglobin 11.8 g/dl (14.0-18.0)
--- NOTE | 2024-01-21 09:14 | CT Scan Report ---
CT OF THE ABDOMEN AND PELVIS WITHOUT CONTRAST CLINICAL HISTORY: Gross hematuria, rectal bleeding. Prostate cancer. Cholangiocarcinoma. COMPARISON STUDY: CT of the abdomen and pelvis April 04, 2022. TECHNIQUE: Axial images of the abdomen and pelvis were obtained without IV contrast. Images were revi ewed in the axial, sagittal, and coronal planes. Automated exposure control was utilized for the ramón dy. A dose lowering technique was utilized adhering to the principles of ALARA. FINDINGS: A 2.8 x 1.8 cm intercostal nodule between the right eighth and ninth ribs, on image 72 of 3 57, is new since CT of April 04, 2022. No pneumatosis, free air or portal venous gas is present. T here are stable postoperative findings following right hepatic lobe resection although evaluation of the liver suboptimal on this unenhanced exam. Retroperitoneal varices are again noted. Mild splenomeg fawn is unchanged. Adrenal glands and pancreas are unremarkable. A cystic 1.5 cm pancreatic body lesio n on image 100 is present. There is no pancreatic ductal dilatation. No peripancreatic infiltration. No abdominal or pelvic lymphadenopathy is present. There is no hydronephrosis. There are no urinary c alculi. The prostate is enlarged. Bladder wall thickening with adjacent stranding is present. The breanne dder is collapsed, containing a Diaz balloon. There is no evidence for a bowel obstruction. No evide nce for acute appendicitis. There are no fluid collections within the abdomen or pelvis. Bilateral in guinal hernias are present. No suspicious lesions within the visualized skeletal structures are prese nt. IMPRESSION: 1. 2.8 x 1.8 cm subcostal nodule between the right eighth and ninth ribs which is new since CT of Mar. This is pathologically indeterminate. 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 Althou gh the location is unusual, metastatic disease cannot be completely excluded. Oncology consultation i s recommended. 2. Stable postoperative findings following right hepatic lobe resection on unenhanced exam. 3. Enlarged prostate. Bladder wall thickening with adjacent stranding which could be correlated with urinalysis. 4. No evidence for a bowel obstruction. 5. Redemonstration of varices and mild splenomegaly suggestive of portal hypertension. ACT 112: Positive. There are findings on this exam that require communication between the performing entity and the patient following Patient Test Result Information Act ([place] Act 112) guidelines. Electronically signed by: Vinicius Banks M.D. 01/21/2024 9:13 AM
--- NOTE | 2024-01-21 10:53 | Gastrointestinal Consultation ---
Date of Consultation January 21, 2024 Assessment & Plan (1) Rectal bleedin78 year old male with history of prostate CA s/p radiation therapy, radiation colitis, bilateral carpal tunnel, HTN, cirrhosis MELD 10 w/ HCC s/p right hepatectomy admitted w/ hematuria and question of hematochezia. He now questions if the blood he saw in the commode during his BM was related to passage of urine. A MARIMAR in the ED was reported as hemepositive, however, he has not passed any further stools. 1. History of radiation proctitis - Encouraged to keep colonoscopy with [facility] Saturday - As no active bleeding reported, conservatives measures - Trend HGB - Monitor and document GI output - Transfuse PRN primary team - Continue established bowel regimen per his outpatient [facility] GI team - Enema therapy discussed - May use Carafate enemas 2 g dissolved in 20 mL water twice daily for 4 weeks or - Canasa suppository HS 2. Hematuria - Management per primary team and urology 3. Cirrhosis, MELD 10, history of HCC s/p right hepatectomy - Contiue with [facility] hepatology - MELD labs every 6 months - ABD imaging w/ AFP every 6 months - EGD every 1-2 years - No ETOH - No NSAIDs - Avoid hepatotoxin - Low NA diet, less than 2G daily - Less than 2G acetaminophen containing products daily Thank you for allowing us to participate in the care of this patient. Please call with any acute changes, questions or concerns. Please see addendum below with additional recommendation from my supervising physician. I spent a total of 65 minutes on the date of service in review of patient's record, and previously obtained information in person and appropriate medical visit, discussion and education of plan, with patient and/or caregiver, placing orders for tests/referral/procedures as medically necessary and documentation of pertinent clinical information in patient's medical records for their visit today. Supervising Physician Co-Signing Physician Notes Patient seen and examined. Case discussed with Mihir SOTO. Patient with history of radiation proctitis treated with APC and has OP f/u for same. He had some hematochezia but more hematuria this admission. Rec: Mesalamine supp 1000mg qhs and keep his OP f/u with his GI to monitor his radiation proctitis. Treatment of hematuria per medicine and urology. IP GI Service will sign off. History of Present Illness Reason for Consultation: rectal bleed, hx rad proctitis, gross hematuria Requesting Physician: Don Kolb MD Attending Physician: Don Kolb MD History of Present Illness 78 year old male with history of prostate CA s/p radiation therapy, radiation colitis, bilateral carpal tunnel, HTN, prostate cancer, cirrhosis w/ HCC s/p right hepatectomy 01/11/2022, reflux esophagitis admitted through the ED with questions of rectal bleeding and hematuria - GI was asked to evaluate. Pt was seen and evaluated chart reviewed. Suggests last evening he had the urge to move his bowels. At that time noted large BM and noticed a brown stool but some BRB in the toilet. This was followed by passing a large amount of bloody urine. He denies any further BMs since initial BM. He believe the blood he saw in the toilet was related to his urine but cannot be certain as he had rectal bleeding about 6 months ago which prompted a colonoscopy for treatment of radiation proctitis. Suggests that he is scheduled for a repeat colonoscopy Saturday for additional therapy of radiation proctitis as needed. This AM feels well from a GI standpoint. No further BM since last night. No abd pain. No nausea/vomiting. Tolerating oral intake. He notes bladder pressure. No fever, chills, CP, SOB. He notes he had a MARIMAR in the ED which was heme positive. CTAP 2023:2.8 x 1.8 cm subcostal nodule between the right eighth and ninth ribs which is new since CT of April 04, 2022. This is pathologically indeterminate. 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 Although the location is unusual, metastatic disease cannot be completely excluded. Oncology consultation is recommended. Stable postoperative findings following right hepatic lobe resection on unenhanced exam. Enlarged prostate. Bladder wall thickening with adjacent stranding which could be correlated with urinalysis.No evidence for a bowel obstruction. Redemonstration of varices and mild splenomegaly suggestive of portal hypertension. Colonoscopy August 2023: multiple bleeding colonic angioectasia treated with APC EGD May 2022: LA grade A esophagitis Diagnosis: suspected steatosis related liver disease Decompensations Varices: none on EGD 2022 Ascites: none HE: none HCC: s/p right hepatectomy 01/31/22 for HCC Screenings: MELD: 10 HCC: CT planned for March 27 2024 Varices: due in 2024 Immunizations: status unknown Allergies Allergy/AdvReac Type Severity Reaction Status Date / Time No Known Allergies Allergy Verified 01/21/24 12:07 Home Medications Medication Instructions Recorded Confirmed Type psyllium husk 3.4 gram/5.4 gram 1 tbsp PO DAILY 09/04/22 01/21/24 History oral powder (Metamucil) acetaminophen 500 mg tablet 500 mg PO Q6H PRN Pain 08/29/23 01/21/24 History (Tylenol Extra Strength) sennosides 8.6 mg capsule (senna) 8.6 mg PO BID PRN constipation #60 08/29/23 01/21/24 Rx caps tamsulosin 0.4 mg capsule 0.4 mg PO DAILY #30 caps 08/29/23 01/21/24 Rx calcium 325 mg-vit D3 12.5 2 tab PO BID 09/05/23 01/21/24 History mcg-zinc 2.75 dg-tlhgoa-zfaknudzg tablet (Citracal-D3 Maximum Plus) ethocdrc-fz-hhpqg 300 mcg-K 60 1 tab PO DAILY 09/05/23 01/21/24 History mcg-lycop 600 mcg-lutein 300 mcg tablet (Centrum Silver Men) triamterene 37.5 1 cap PO DAILY #30 caps 11/08/23 01/21/24 Rx mg-hydrochlorothiazide 25 mg capsule Patient History Medical History Hepatic lesion Lower urinary tract symptoms (LUTS) Elevated PSA Screening for diabetes mellitus Screening, lipid Lumbar disc disease Prostate nodule Shoulder pain, left BPH loc w urin obs/LUTS Laceration of index finger with tendon involvement Hearing loss Surgical History Hx of colonoscopy H/O resection of liver HCC 01/2022 History of cataract surgery Vasectomy status Family History Mother Cancer of sarcoma leg at age 71 Father BPH (benign prostatic hyperplasia) Lumbar disc disease Stroke Sister COPD (chronic obstructive pulmonary disease) Hypothyroidism Hypertension Other Cystic kidney disease Diabetes Denies family history of Ovarian cancer Prostate cancer Cerebral aneurysm Myocardial infarction Breast cancer Lung cancer Colorectal cancer Pulmonary embolism Colonic polyp Social History Smoking Status: Former smoker Tobacco Type: Pipe Age Started Using Tobacco: 26; Age Quit Using Tobacco: 27; Second Hand Exposure: No; Do You Dip or Chew Tobacco: No; Hx Alcohol Use: No Hx Substance Use: No Preferred Language: Thai Communication Ability: Effective Visual Impairment: No Limitations Hearing Ability: Hard of Hearing 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 Beliefs That Will Affect Care: None marital status: Current Living Situation: Spouse current occupational status: retired How many Children do You have: 3 Feels Safe at Home: Yes Childhood Exposure to Second-Hand Smoke: No Diet: regular caffeine: Yes during the past year weight has: remained stable Dental Care, Regularly: No Physical Activity Frequency: 5-6 Times per Week Seatbelt Use: always Sunscreen Use: Yes Do you think of yourself as: straight/heterosexual Gender Identity: Male Assistive Devices: Walker Review of Systems Review of Systems: All other findings negative except as noted in HPI. Physical Exam Constitutional: WD/WN, vitals as above Respiratory: normal respiratory effort, lungs clear to auscultation Cardiovascular: RRR, no murmur, no edema Gastrointestinal (Abdomen): normal bowel sounds, soft, nontender, no hepatosplenomegaly Skin: no rashes, warm and dry Results & Data Vital Signs (Past 12 Hours) Vital Signs Temp Pulse Pulse Pulse Resp BP BP 01/21/24 08:55 36.3 C L 80 18 170/74 H 01/21/24 08:00 83 20 178/98 H 01/21/24 06:30 78 18 102/65 01/21/24 04:33 88 18 159/89 H 01/21/24 04:24 01/21/24 04:19 36.5 C 72 14 141/72 H 01/21/24 04:05 77 Pulse Ox O2 Del Method 01/21/24 08:55 99 Room Air 01/21/24 08:00 98 Room Air 01/21/24 06:30 98 Room Air 01/21/24 04:33 01/21/24 04:24 96 Room Air 01/21/24 04:19 98 Room Air 01/21/24 04:05 Laboratory Results 01/21/24 01/21/24 01/21/24 Range/Units 08:17 06:14 04:15 WBC (4.8-10.8) K/ul RBC (4.70-6.10) M/uL Hgb 11.8 L (14.0-18.0) g/dl Hct 32.6 L (42.0-52.0) % MCV (80.0-100.0) fL MCH (25.0-34.0) pg MCHC (32.0-36.0) g/dL RDW Std Deviation (36.4-46.3) fL RDW Coeff of Jose (11.5-14.5) % Plt Count (130-400) K/uL MPV (9.4-12.4) fL Immature Gran % (Auto) % Neut % (Auto) % Lymph % (Auto) % O'Brien % (Auto) % Eos % (Auto) % Baso % (Auto) % Neut # (Auto) (1.40-6.50) K/uL Lymph # (Auto) (1.20-3.40) K/uL O'Brien # (Auto) (0.11-0.59) K/uL Eos # (Auto) (0.00-0.50) K/uL Baso # (Auto) (0.00-0.20) K/uL Immature Gran # (Auto) (0.01-0.20) K/uL Platelet Estimate (Normal) RBC Morphology PT (9.0-12.0) Seconds INR (0.9-1.1) APTT (21-31) Seconds PTT Ratio Sodium (136-145) mmol/L Potassium (3.5-5.1) mmol/L Chloride (98-107) mmol/L Carbon Dioxide (21-32) mmol/L Anion Gap (3-11) BUN (6-23) mg/dl Creatinine (0.6-1.4) mg/dl Est Cr Clr Drug Dosing ml/min Est GFR ( Amer) ml/min Est GFR (Non-Af Amer) ml/min BUN/Creatinine Ratio (10-20) Glucose (70-99(Fasting)) mg/dl Calcium (8.6-10.3) mg/dl Total Bilirubin (0.2-1.0) mg/dl AST (13-39) U/L ALT (7-52) U/L Alkaline Phosphatase (34-104) U/L Total Protein (6.0-8.3) gm/dl Albumin (3.4-5.0) gm/dl Globulin (2.5-4.0) gm/dl Albumin/Globulin Ratio (0.9-2) Urine Color Red Urine Appearance Turbid A (Clear) Urine pH 7.0 (4.5-7.5) Ur Specific [place] 1.025 (1.000-1.030) Urine Protein 3+ H (Negative) Urine Glucose (UA) Trace H (Negative) Urine Ketones Negative (Negative) Urine Blood 3+ H (Negative) Urine Nitrite Negative (Negative) Urine Bilirubin Negative (Negative) Urine Urobilinogen Negative (Negative) Ur Leukocyte Esterase Negative (Negative) Urine RBC >20 H (0-2) /hpf Urine WBC 11-20 H (0-5) /hpf Ur Epithelial Cells 3-5 H (0-2) /hpf Urine Bacteria None Seen (None Seen) Blood Type A Positive Antibody Screen NEGATIVE 01/21/24 Range/Units 04:09 WBC 3.07 L (4.8-10.8) K/ul RBC 3.42 L (4.70-6.10) M/uL Hgb 11.5 L (14.0-18.0) g/dl Hct 31.8 L (42.0-52.0) % MCV 93.0 (80.0-100.0) fL MCH 33.6 (25.0-34.0) pg MCHC 36.2 H (32.0-36.0) g/dL RDW Std Deviation 45.2 (36.4-46.3) fL RDW Coeff of Jose 13.3 (11.5-14.5) % Plt Count 93 L (130-400) K/uL MPV 10.9 (9.4-12.4) fL Immature Gran % (Auto) 0.3 % Neut % (Auto) 40.7 % Lymph % (Auto) 33.9 % O'Brien % (Auto) 19.9 % Eos % (Auto) 3.9 % Baso % (Auto) 1.3 % Neut # (Auto) 1.25 L (1.40-6.50) K/uL Lymph # (Auto) 1.04 L (1.20-3.40) K/uL O'Brien # (Auto) 0.61 H (0.11-0.59) K/uL Eos # (Auto) 0.12 (0.00-0.50) K/uL Baso # (Auto) 0.04 (0.00-0.20) K/uL Immature Gran # (Auto) 0.01 (0.01-0.20) K/uL Platelet Estimate Decreased L (Normal) RBC Morphology Unremarkable PT 12.4 H (9.0-12.0) Seconds INR 1.2 H (0.9-1.1) APTT 26 (21-31) Seconds PTT Ratio 1.0 Sodium 135 L (136-145) mmol/L Potassium 3.7 (3.5-5.1) mmol/L Chloride 106 (98-107) mmol/L Carbon Dioxide 25 (21-32) mmol/L Anion Gap 4 (3-11) BUN 13 (6-23) mg/dl Creatinine 0.75 (0.6-1.4) mg/dl Est Cr Clr Drug Dosing 91.5 ml/min Est GFR ( Amer) 100.4 ml/min Est GFR (Non-Af Amer) 86.6 ml/min BUN/Creatinine Ratio 17.3 (10-20) Glucose 125 H (70-99(Fasting)) mg/dl Calcium 8.7 (8.6-10.3) mg/dl Total Bilirubin 1.5 H (0.2-1.0) mg/dl AST 68 H (13-39) U/L ALT 43 (7-52) U/L Alkaline Phosphatase 81 (34-104) U/L Total Protein 6.1 (6.0-8.3) gm/dl Albumin 3.3 L (3.4-5.0) gm/dl Globulin 2.8 (2.5-4.0) gm/dl Albumin/Globulin Ratio 1.2 (0.9-2) Urine Color Urine Appearance (Clear) Urine pH (4.5-7.5) Ur Specific [place] (1.000-1.030) Urine Protein (Negative) Urine Glucose (UA) (Negative) Urine Ketones (Negative) Urine Blood (Negative) Urine Nitrite (Negative) Urine Bilirubin (Negative) Urine Urobilinogen (Negative) Ur Leukocyte Esterase (Negative) Urine RBC (0-2) /hpf Urine WBC (0-5) /hpf Ur Epithelial Cells (0-2) /hpf Urine Bacteria (None Seen) Blood Type Antibody Screen PG Care Time/CCT Total # of Minutes Spent Total Time Spent with Patient: Total time spent is greater than 50% in coordination of care (as documented) at patient's floor/unit and/or counseling patient: Coding Level of Care Code 41375 INT INP/OBS CARE 2/55MIN Diagnoses Rectal bleeding K62.5
[2024-01-21] MEDS ORDERED: Nursing to Pharmacy Communication SCH (11:00)
[2024-01-21] MEDS: TAMSULOSIN HCL 0.4 MG CAP PO SCH (11:24)
[2024-01-21] MEDS: metroNIDAZOLE 500 MG/100 ML BAG IV STA (11:26)
--- NOTE | 2024-01-21 12:00 | Electrocardiogram Report ---
Test Reason : Blood Pressure : */* mmHG Vent. Rate : 69 BPM Atrial Rate : 69 BPM P-R Int : 164 ms QRS Dur : 82 ms QT Int : 414 ms P-R-T Axes : 6 11 24 degrees QTcB Int : 443 ms Sinus rhythm with occasional Premature ventricular complexes Otherwise normal ECG No previous ECGs available Confirmed by Ry Knox [id number]) on 01/21/2024 11:59:30 AM Referred By: REFERRED SELF Confirmed By: Ry Knox
[2024-01-21] MEDS: VIBEGRON 75 MG TAB PO SCH (12:57)
--- NOTE | 2024-01-21 13:10 | Urology Progress Note ---
Date of Service January 21, 2024 Assessment & Plan (1) Gross hematuria: Plan: 78-year-old male with history of prostate cancer status post radiation, radiation proctitis, and HCC admitted for gross hematuria and rectal bleeding. Patient subjectively doing well We discussed that hematuria may be due to radiation cystitis CT abdomen pelvis showed no significant clot within the bladder Diaz catheter is draining appropriately, urine is clear to light pink with CBI on slow His urine turned to dark gallagher red after titrating down his CBI during exam, so I opted to leave it on slow for the time being Continue with Diaz catheter and CBI, plan to titrate CBI as appropriate Okay for nursing to gently hand irrigate catheter as needed for clot obstruction Added Gemtesa 75 mg once daily for presumed bladder spasms Urine culture is pending, continue with empiric antibiotics and tailor per sensitivity data when available Continue to trend labs, H/H Continue supportive care, antibiotics and medical management per primary service will follow Admission and Anticipated Discharge Date Admission Date: January 21, 2024 Subjective Patient seen at bedside. He reports he is feeling better since Diaz catheter placement. Diaz intact with clear to light pink urine with CBI on slow. Notes occasional sensation of urinary urgency and occasional bladder discomfort. Denies dysuria, fever or chills. Review of Systems Constitutional: as per Subjective / HPI Genitourinary: + as per Subjective / HPI Physical Exam Constitutional: well developed and well nourished; no acute distress Respiratory: normal respiratory effort; no respiratory distress and no labored breathing Gastrointestinal (Abdomen): Inspection/Auscultation: abdomen normal to inspection Musculoskeletal: Head/Neck/Chest: normocephalic Neurologic: moves all extremities and awake Psychiatric: Orientation: alert and oriented x 3 Genitourinary: Diaz patent and draining clear to light pink urine with CBI on slow Results & Data Vital Signs (Past 12 Hours) Vital Signs Temp Pulse Pulse Pulse Resp BP BP 01/21/24 08:55 01/21/24 08:55 36.3 C L 80 18 170/74 H 01/21/24 08:00 83 20 178/98 H 01/21/24 06:30 78 18 102/65 01/21/24 04:33 88 18 159/89 H 01/21/24 04:24 01/21/24 04:19 36.5 C 72 14 141/72 H 01/21/24 04:05 77 Pulse Ox O2 Del Method 01/21/24 08:55 Room Air 01/21/24 08:55 99 Room Air 01/21/24 08:00 98 Room Air 01/21/24 06:30 98 Room Air 01/21/24 04:33 01/21/24 04:24 96 Room Air 01/21/24 04:19 98 Room Air 01/21/24 04:05 PG Care Time/CCT Total # of Minutes Spent Total Time Spent with Patient: Total time spent is greater than 50% in coordination of care (as documented) at patient's floor/unit and/or counseling patient: Coding Level of Care Code None Diagnoses Gross hematuria R31.0
[2024-01-21 15:02] LABS: Hematocrit (blood only) 30.7 % (42.0-52.0); Hemoglobin 11.5 g/dl (14.0-18.0)
[2024-01-21] MEDS: metroNIDAZOLE 500 MG/100 ML BAG IV SCH (19:48)
[2024-01-21 20:07] LABS: Hematocrit (blood only) 28.1 % (42.0-52.0); Hemoglobin 10.3 g/dl (14.0-18.0)
--- NOTE | 2024-01-22 06:50 | Hospitalist Progress Note ---
Date of Service January 22, 2024 Assessment & Plan (1) Rectal bleed: (2) Gross hematuria: (3) Benign essential hypertension: Plan Gross hematuria/history of prostate cancer/history radiation- - Continue CBI begun in the ED, with likelihood of periodic clots causing obstruction - Follow urine culture and sensitivity - Empiric ceftriaxone 2 g IV daily - Urology has been consulted; continuous irrigation clamped this morning - hgb today 9.9 today GI bleeding/history of radiation proctitis/history of proctocolitis- - Patient underwent colonoscopy August this year at [facility], and had some form of cautery performed - Colonoscopy is scheduled for 01/23 at [place] - Ceftriaxone as above, add Flagyl 500 mg IV every 8 hours - Consult gastroenterology; keep Saturday colonoscopy appt, Hepatocellular carcinoma- - Patient status post right hepatectomy 01/11/2022 - Follows with [facility] hepatology Hypertension- - Hold triamterene/HCTZ Thrombocytopenia- - Platelets 108 are near his baseline - Follow serially Admission and Anticipated Discharge Date Admission Date: January 21, 2024 Supervising Physician Co-Signing Physician Notes I personally examined the patient and verified all vega points of history and exam, discussed case, and agree with decision making with Dr Covarrubias Feeling better. Initially whenever irrigation was turned off he was having a decent amount of painful urinary clottingthis has largely cleared. Discussed anticipated being able to get him to outpatient by tomorrow, and anticipate that he is likely to be able to follow through with his planned colonoscopy on Saturday. Vitals noted, in general he is awake and alert pleasant no distress. HEENT normocephalic atraumatic mucous membranes moist. Breathing unlabored no accessory muscle use good effort. Skin without rashes pallor or icterus. GUFoley is in place draining clear yellow urine with thin strandy clots but no gross blood and no large clots. hematuria - likely radiation cystitis, treating empirically for infection. appreciate urology assistance, Now off of CBI, follow urine/BMP hematochezia - appears to have known radiation proctitis - for scope saturdayand I anticipate he will be able to make it hemodynamically stable thrombocytopenia and anemia seems chronicintermittently leukopenic as well creating intermittent pancytopenialikely all chronic due to his chronic diseases. otherwise as above Subjective Today, pt states he is feeling well. He states that he is still occasionally passes urinary clots that are very painful to pass this morning. He states he has had 3 bowel movements since yesterday, the first one had some red blood but after that has been okay. Notes some abdominal cramping before he passes a clot. He states his goal was to leave late today or early tomorrow for his travel to [place] to start his prep for his colonoscopy on Saturday. No questions or complaints at this time. Review of Systems Review of Systems: Per HPI. Physical Exam Physical Exam: General:Alert and oriented, no acute distress, HEENT: Normocephalic, moist oral mucosa, Cardio: Regular rate and rhythm, Resp:Lungs clear to auscultation b/l, no wheezes or rhonchi, GI: Soft, nondistended, bowel sounds active Skin: Warm, pink, dry, Results & Data Results & Data Vital Signs (Past 12 Hours) Vital Signs Temp Pulse Resp BP Pulse Ox O2 Del Method 01/21/24 19:49 36.7 C 106 H 18 120/71 98 Room Air Resident Activity Tracking Resident Involvement: Resident Care Provided Care Provided: Adult Hospital Medicine
[2024-01-22 08:41] LABS: Albumin Globulin Ratio 1.2 (0.9-2); Albumin Level 2.7 gm/dl (3.4-5.0); BUN Creatinine Ratio 20.5 (10-20); Calcium 7.7 mg/dl (8.6-10.3); Est GFR (African American) 98.8 ml/min; Est GFR (Non-African American) 85.3 ml/min; Globulin 2.2 gm/dl (2.5-4.0); Magnesium 1.7 mg/dl (1.7-2.4); Potassium 3.9 mmol/L (3.5-5.1); Total Protein 4.9 gm/dl (6.0-8.3)
[2024-01-22 08:46] LABS: Basophils # (auto) 0.03 K/uL (0.00-0.20); Basophils % (auto) 0.5 %; Eosinophils % (auto) 1.7 %; Hematocrit (blood only) 27.4 % (42.0-52.0); Hemoglobin 9.9 g/dl (14.0-18.0); Immature Granulocytes # (auto) 0.02 K/uL (0.01-0.20); Immature Granulocytes % (auto) 0.3 %; Lymphocytes # (auto) 1.75 K/uL (1.20-3.40); Lymphocytes % (auto) 29.3 %; Mean Corpuscular Hemoglobin 34.1 pg (25.0-34.0); Mean Corpuscular Hgb Conc 36.1 g/dL (32.0-36.0); Mean Corpuscular Volume 94.5 fL (80.0-100.0); Monocytes # (auto) 1.01 K/uL (0.11-0.59); Monocytes % (auto) 16.9 %; Neutrophils # (auto) 3.06 K/uL (1.40-6.50); Neutrophils % (auto) 51.3 %; Platelet Count 82 K/uL (130-400); RDW Coefficient of Variation 13.5 % (11.5-14.5); RDW Standard Deviation 46.9 fL (36.4-46.3); White Blood Count 5.97 K/ul (4.8-10.8)
[2024-01-22] MEDS: cefTRIAXone SODIUM 2,000 MG/50 ML BAG IV SCH (08:51)
--- NOTE | 2024-01-22 09:45 | Urology Progress Note ---
Date of Service January 22, 2024 Assessment & Plan (1) Gross hematuria: (2) Gross hematuria: Plan: 78-year-old male with history of prostate cancer status post radiation, radiation proctitis, and HCC admitted for gross hematuria and rectal bleeding. Patient subjectively doing well Afebrile, hemodynamically stable Labs today reviewedcreatinine 0.78, WBC 5.97, hemoglobin 9.9 Urine culture is pending, continue with empiric antibiotics and tailor per sensi tivity data when available Diaz patent and draining clear urine with CBI on slow CBI was clamped during exam Plan to titrate CBI and will discontinue when appropriate Maintain Diaz catheter Okay for nursing to gently hand irrigate catheter as needed for clot obstruction Patient can be discharged with Diaz catheter and hopefully can keep his scheduled colonoscopy Plan for voiding trial next week with urology as an outpatient Continue Gemtesa 75 mg once daily for bladder spasms Continue supportive care, antibiotics and medical management per primary service will follow Admission and Anticipated Discharge Date Admission Date: January 21, 2024 Subjective Patient seen and examined at bedside. No acute issues overnight. Catheter did not require manual irrigation overnight. Per nursing, 2 small clots were noted which easily passed through tubing without intervention. Diaz patent and draining clear urine with CBI on slow. CBI clamped during exam at 0900. Patient continues to have intermittent bladder spasms. Review of Systems Constitutional: as per Subjective / HPI Genitourinary: + as per Subjective / HPI Physical Exam Constitutional: well developed and well nourished; no acute distress Respiratory: normal respiratory effort; no respiratory distress and no labored breathing Gastrointestinal (Abdomen): Inspection/Auscultation: abdomen normal to inspection Musculoskeletal: Head/Neck/Chest: normocephalic Neurologic: moves all extremities and awake Psychiatric: Orientation: alert and oriented x 3 Genitourinary: Diaz patent and draining clear urine with CBI on slow, CBI clamped at 0900 Results & Data Vital Signs (Past 12 Hours) Vital Signs Temp Pulse Resp BP Pulse Ox O2 Del Method 01/22/24 07:30 Room Air 01/22/24 07:23 36.9 C 75 16 120/63 96 Room Air PG Care Time/CCT Total # of Minutes Spent Total Time Spent with Patient: Total time spent is greater than 50% in coordination of care (as documented) at patient's floor/unit and/or counseling patient: Coding Level of Care Code 55609 SUB INP/OBS CARE 06/06MIN Diagnoses Gross hematuria R31.0
[2024-01-22] MEDS: PANTOprazole 40 MG in SYRINGE 0 ML IV SCH (11:33)
--- NOTE | 2024-01-22 18:17 | Billing Data ---
Date of Service January 22, 2024 Coding Level of Care Code 31264 SUB INP/OBS CARE
--- NOTE | 2024-01-23 06:47 | Discharge Summary ---
Date of Service January 23, 2024 Admission HPI Per Admitting Provider The patient is an 78-year-old male with a past medical history including radiation proctitis, proctocolitis, pancytopenia, bilateral carpal tunnel syndrome, hypertension, prostate cancer, hepatocellular carcinoma status post right hepatectomy 01/11/2022, s/p radiation therapy, grade a reflux esophagitis on EGD 06/01/2022, left varicocele and small hydrocele. He presents to the emergency department with initially rectal bleeding, followed by persistent gross hematuria. He did have a three-way Coelho catheter placed in ED, and CBI was begun. He did have some blockage temporarily with blood clots, which were able to be evacuated and CBI is now running smoothly. He was having some occasional bladder spasm pain during my interview, but prior to that had presented with painless rectal and urologic bleeding. He did undergo a colonoscopy in August at [facility], where he had some form of cautery performed, and has a colonoscopy scheduled for this Saturday, 01/23. He follows locally with urology Dr. Schultz. Admission Exam Per Admitting Provider The patient is awake, alert and oriented 3, well developed and well nourished, normocephalic and atraumatic, lying in bed and in no acute distress. HEENT--PERRL, EOMI, mucous membranes and oropharynx mildly dry. Neck--supple. No JVD. No bruits. Thyroid normal, trachea midline, no adenopathy. Heart--normal S1 and S2. No murmurs, rubs or gallops. Lungs--clear bilaterally, no respiratory distress, no accessory muscle use. Abdomen--normal bowel sounds and soft. Nontender. Nondistended Extremities--no cyanosis or clubbing. No edema. Dermatologic--normal skin turgor, normal color, no abnormal lymph nodes, no rash. Neurologic--cranial nerves II through XII grossly intact. Rheumatologic--normal range of motion. Psychiatric--normal affect. Principal Diagnosis Hematuria, hematochezia Discharge Exam General:Alert and oriented, no acute distress, HEENT: Normocephalic, moist oral mucosa, Cardio: Regular rate and rhythm, Resp:Lungs clear to auscultation b/l, no wheezes or rhonchi, GI: Soft, nondistended, bowel sounds active Skin: Warm, pink, dry, Discharge Data Allergies Allergy/AdvReac Type Severity Reaction Status Date / Time No Known Allergies Allergy Verified 01/21/24 12:07 Consultations 01/21/24 05:45 ED Decision to Admit Stat 01/21/24 06:24 Consult Gastroenterology Routine 01/21/24 09:28 Consult Urology Routine Ordered Studies 01/21/24 06:16 CT Abd and Pelvis [CT abd pelvis wo con] Stat Hospital Course (1) Rectal bleed: (2) Gross hematuria: (3) Benign essential hypertension: Plan Gross hematuria/history of prostate cancer/history radiation- - CBI begun in the ED and continued until yesterday, clamped and did well, passing occasional clots today but not as painful and not obstructed by them - was on empiric ceftriaxone 2 g IV daily, discharged on course of cefpodoxime - Urology has been consulted; continuous irrigation done until yesterday, then pt did well without - hgb today 9.9 today, stable but note low platelets 77 GI bleeding/history of radiation proctitis/history of proctocolitis- - Patient underwent colonoscopy August this year at [facility], and had some form of cautery performed - Colonoscopy is scheduled for 01/23 at [place] - Ceftriaxone as above, add Flagyl 500 mg IV every 8 hours given inpatient, no need to continue flagyl on discharge - Consult gastroenterology; keep Saturday colonoscopy appt so will D/C today so he can make that appt as no more blood BMs noted Hepatocellular carcinoma- - Patient status post right hepatectomy 01/11/2022 - Follows with [place] hepatology Hypertension- - Held triamterene/HCTZ, continue to hold on discharge as pressures have been low Total Time Total Time Spent Total Time Spent (In Minutes): <30 Discharge Plan Discharge Items Patient Disposition: Home - Self-Care Reason For Visit: GROSS HEMATURIA, GI BLEEDING Discharge Diagnosis: Hematuria Activity: Resume your previous activity Non-emergency contact: Primary Care Provider Call non-emergency contact if: you have any medication questions and your symptoms worsen Follow-up/Referrals: Benoit Castillo MD [Primary Care Provider] - 01/30/24 1:30 pm Diet: Regular Addtl Attending Provider Instructions: You were admitted to the hospital for blood in your stool and blood in your urine. It seems that both problems relate back to your radiation therapy history and hx of known radiation proctitis (causing the blood in the stool) and radiation cystitis (causing blood in the urine). As the blood in your stool has improved and you already have a planned colonoscopy on 01/23, our GI folks believe there is nothing else to do here at this time. Our urology folks also saw you this admission and would like to keep the coelho catheter in place until you follow up with them in the office for a trial to make sure when it is removed that you can pee without getting blocked up again. As you are no longer requiring continuous bladder irrigation, we believe it is safe to get you back home at this time for follow up with urology in 1-2 weeks in the office and follow up with GI in [place] for your scheduled colonoscopy. Please look at the medication list for any updates to your medications or new medications that were added since being here that you should start or continue. * Your dose of tamsulosin has increased from 0.4 mg to 0.8 mg daily. * A medication called Gemtesa has been added for bladder spasms * You were also given a course of cefpodoxime (an antibiotic) for your urinary tract infection. Please do not stop this early, even if you feel great. * Please hold your triamterene-HCTZ for your blood pressure until you follow-up with your primary care physician since your blood pressure here was normal without it. You should also plan to follow-up with your primary care provider (family doctor) sometime next week. You will have to call them to make this appointment, but let them know you were recently in the hospital. Pending Studies at Discharge: No Stand-Alone Forms: My [facility] Better Bean, Smoking Cessation Medications and DC Order Prescriptions: New tamsulosin 0.4 mg Capsule 0.8 mg PO DAILY 30 Days Qty: 60 1RF Gemtesa 75 mg Tablet 75 mg PO DAILY 30 Days Qty: 30 1RF cefpodoxime 200 mg tablet 200 mg PO BID 7 Days Qty: 14 0RF Rx Instructions: must administer with a meal/food Continued Metamucil 3.4 gram/5.4 gram powder 1 tbsp PO DAILY Rx Instructions: mix into at least 8 oz of water or juice before administering Centrum Silver Men [id number] mcg tablet 1 tab PO DAILY [id number]-[id number] [Citracal-D3 Maximum Plus] 325 mg-12.5 mcg -2.75 mg tablet 2 tab PO BID acetaminophen [Tylenol Extra Strength] 500 mg tablet 500 mg PO Q6H PRN (Reason: Pain) senna 8.6 mg capsule 8.6 mg PO BID PRN (Reason: constipation) Qty: 60 0RF Discontinued tamsulosin 0.4 mg capsule 0.4 mg PO DAILY Qty: 30 5RF Rx Instructions: Take with food after supper. No Action triamterene-hydrochlorothiazid 37.5-25 mg capsule 1 cap PO DAILY Qty: 30 2RF Discharge Orders: Discharge Order (Routine); Ordered 01/23/24 Ordered By: Digna Busby/Other Patient Handouts: Urinary Catheter Bag Empty Clean, Indwelling Urinary Catheter Dc, Leg Bag Care Dc Admission Data Admit Date/Time: 01/21/24 06:23 Attending Provider: Frankie Ko Admit Provider: Don Kolb Primary Care Provider: Benoit Castillo Other Providers: Don Kolb; Jason Aguillon; Storm Abreu. Other Interventions: Discharge Summary Assessment (RN) Last Done: 01/23/24 11:26 Supervising Physician Co-Signing Physician Notes I personally examined the patient and verified all vega points of history and exam, discussed case, and agree with decision making with Dr Covarrubias feeling better overall very few clots and very little bladder spasms. feels up to going home. Vitals noted, in general he is awake and alert pleasant no distress. HEENT normocephalic atraumatic mucous membranes moist. Breathing unlabored no accessory muscle use good effort. Skin without rashes pallor or icterus. GUFoley is in place draining clear yellow urine, urine in bag clear red. hematuria - likely radiation cystitis, treating empirically for infection. appreciate urology assistance, Now off of CBI, Safe/stable for home. Discussed criteria to return to the hospital. Outpatient urology follow-up and voiding trial next week. Anticipate cystoscopy in the near future. hematochezia - appears to have known radiation proctitis - Stable to go for scope tomorrowasked resident physician to message gastroenterology at [facility] about his current situation and current lab work, including platelet count, so that they are aware as he arrives. hemodynamically stable thrombocytopenia and anemia seems chronicintermittently leukopenic as well creating intermittent pancytopenialikely all chronic due to his chronic diseases. otherwise as above, stable for home Resident Activity Tracking Resident Involvement: Resident Care Provided Care Provided: Adult Hospital Medicine
[2024-01-23 07:36] LABS: Basophils # (auto) 0.04 K/uL (0.00-0.20); Basophils % (auto) 0.8 %; Eosinophils # (auto) 0.12 K/uL (0.00-0.50); Eosinophils % (auto) 2.4 %; Hematocrit (blood only) 27.2 % (42.0-52.0); Hemoglobin 9.9 g/dl (14.0-18.0); Immature Granulocytes # (auto) 0.02 K/uL (0.01-0.20); Immature Granulocytes % (auto) 0.4 %; Lymphocytes # (auto) 1.31 K/uL (1.20-3.40); Lymphocytes % (auto) 26.6 %; Mean Corpuscular Hemoglobin 33.4 pg (25.0-34.0); Mean Corpuscular Hgb Conc 36.4 g/dL (32.0-36.0); Mean Corpuscular Volume 91.9 fL (80.0-100.0); Mean Platelet Volume 10.9 fL (9.4-12.4); Monocytes # (auto) 0.85 K/uL (0.11-0.59); Monocytes % (auto) 17.2 %; Neutrophils # (auto) 2.59 K/uL (1.40-6.50); Neutrophils % (auto) 52.6 %; Platelet Count 77 K/uL (130-400); RDW Coefficient of Variation 13.2 % (11.5-14.5); RDW Standard Deviation 44.2 fL (36.4-46.3); Red Blood Count 2.96 M/uL (4.70-6.10); White Blood Count 4.93 K/ul (4.8-10.8)
[2024-01-23 07:37] VITALS: RESP 16; TEMP 98.1; O2SAT 96
--- NOTE | 2024-01-23 07:45 | Urology Progress Note ---
Date of Service January 23, 2024 Assessment & Plan (1) Gross hematuria: Plan: 78-year-old male with history of prostate cancer status post radiation, radiation proctitis, and HCC admitted for gross hematuria and rectal bleeding. Patient subjectively doing well Afebrile, hemodynamically stable Hemoglobin stable at 9.9 today; creatinine 0.64, no leukocytosis Urine culture is prelim with no growth Diaz patent and draining mostly yellow urine with occasional clot easily passing through and pinking urine intermittently CBI has been clamped since yesterday Orders placed to discontinue CBI Maintain Diaz catheter Okay for nursing to gently hand irrigate catheter as needed for clot obstruction Patient can be discharged with Diaz catheter when medically stable and hopefully can keep his scheduled colonoscopy Plan for voiding trial next week with urology as an outpatient Continue Gemtesa 75 mg once daily for bladder spasms Continue supportive care and medical management per primary service will follow Admission and Anticipated Discharge Date Admission Date: January 21, 2024 Subjective Patient seen and examined at bedside this morning. No acute issues overnight. CBI has been clamped since yesterday morning. He is intermittently passing small clots through tubing, but no manual irrigation or intervention has been required. He reports intermittent bladder discomfort/spasm. No other complaints at this time. Review of Systems Constitutional: as per Subjective / HPI Genitourinary: + as per Subjective / HPI Physical Exam Constitutional: well developed and well nourished; no acute distress Respiratory: normal respiratory effort; no respiratory distress and no labored breathing Gastrointestinal (Abdomen): Inspection/Auscultation: abdomen normal to inspection Musculoskeletal: Head/Neck/Chest: normocephalic Neurologic: moves all extremities and awake Psychiatric: Orientation: alert and oriented x 3 Genitourinary: Diaz patent and draining mostly yellow urine, occasional small clot easily passing through that is pinking urine intermittently. CBI in clamped. Results & Data Vital Signs (Past 12 Hours) Vital Signs Temp Pulse Resp BP BP Pulse Ox O2 Del Method 01/23/24 07:36 36.7 C 70 16 129/65 96 Room Air 01/22/24 20:30 Room Air 01/22/24 20:20 36.9 C 74 18 149/71 H 95 Room Air PG Care Time/CCT Total # of Minutes Spent Total Time Spent with Patient: Total time spent is greater than 50% in coordination of care (as documented) at patient's floor/unit and/or counseling patient: Coding Level of Care Code 79858 SUB INP/OBS CARE 06/06MIN Diagnoses Gross hematuria R31.0
[2024-01-23 08:17] LABS: BUN Creatinine Ratio 18.8 (10-20); Calcium 7.8 mg/dl (8.6-10.3); Creatinine Clr Calc Pharmacy 107.2 ml/min; Est GFR (African American) 107.2 ml/min; Est GFR (Non-African American) 92.5 ml/min; Magnesium 1.7 mg/dl (1.7-2.4); Potassium 3.7 mmol/L (3.5-5.1)
[2024-01-23 11:27] VITALS: BP 149/71; PULSE 83
--- NOTE | 2024-01-23 18:53 | Billing Data ---
Date of Service January 23, 2024 Coding Level of Care Code 21840 IN/OBS DISCH 30 MIN/LESS
== END 2024-01-23 12:26 | disposition home or self-care (01) | DRG 699 ==
LOC: SUATTDRO → ED 03:58 → 3W 06:23 → SUATTDRO 06:23 → 3W 09:11